=== PATIENT | female | born 1945 | race American Indian/Alaskan Native ===

== ENCOUNTER 2020-09-02 06:00 | Emergency (ER) | payer MEDICARE ==
[2020-09-02] MEDS ORDERED: oxyCODONE /ACETAMINOPHEN 5-325MG TAB PO ONE (10:38)
[2020-09-02] MEDS ORDERED: KETOROLAC 30 MG/1 ML INJ IM ONE (10:38)
--- NOTE | 2020-09-02 10:39 | Emergency Department Report ---
ED General Adult HPI - General Chief complaint: Pain General Stated complaint: RIGHT SIDE PAIN Time Seen by Provider: 09/02/20 10:28 Source: patient Mode of arrival: Wheelchair Limitations: No Limitations - History of Present Illness Initial comments: This is a 75-year-old female with history of spinal stenosis fibromyalgia and rheumatoid arthritis. She states that she missed her appointment at the pain clinic on Friday and is now in severe pain. Her pain is located mostly in her right knee and right hip. She denies any falls or injuries states this is her usual pain that is out of control at this time. She was last seen by Dr. summers who her primary care doctor that makes home visits approximately 2 weeks ago she was prescribed tramadol but it is not controlling her pain Patient denies chest pain, shortness of breath fever cough chills any urinary symptoms. She's currently taking Elliquis for hx of PE. -: Gradual Location: lower extremity (right knee and right hip) Severity scale (0 -10): 10 Quality: aching Improves with: none Worsens with: movement Associated Symptoms: denies: confusion, chest pain, cough, diaphoresis, fever/chills, headaches, loss of appetite, malaise, nausea/vomiting, shortness of breath, syncope, weakness Treatments Prior to Arrival: other (tramadol) - Related Data Allergies Allergy/AdvReac Type Severity Reaction Status Date / Time No Known Allergies Allergy Unverified 09/02/20 07:20 ED Review of Systems ROS: Stated complaint: RIGHT SIDE PAIN Other details as noted in HPI Constitutional: no symptoms reported. denies: chills, fever, malaise ENT: denies: ear pain Respiratory: denies: cough, shortness of breath, SOB with exertion, SOB at rest, wheezing Cardiovascular: denies: chest pain, palpitations, dyspnea on exertion, orthopnea, edema, syncope, paroxysmal nocturnal dyspnea Endocrine: denies: excessive sweating, flushing, intolerance to cold Gastrointestinal: denies: abdominal pain, nausea, vomiting, diarrhea, constipation, hematemesis Genitourinary: denies: urgency, dysuria, hematuria, dyspareunia Skin: denies: rash, lesions Neurological: denies: headache, weakness, numbness, paresthesias, confusion, vertigo, other Psychiatric: denies: anxiety, depression, auditory hallucinations, visual hallucinations, homicidal thoughts Hematological/Lymphatic: denies: easy bleeding, easy bruising ED Past Medical Hx - Past Medical History Previous Medical History?: Yes Hx Arthritis: Yes Additional medical history: Fibromyalgia ED Physical Exam - General Limitations: No Limitations General appearance: alert, anxious - Head Head exam: Present: atraumatic - Eye Eye exam: Present: normal appearance, PERRL, EOMI. Absent: conjunctival injection Pupils: Present: normal accommodation - ENT ENT exam: Present: normal exam, mucous membranes moist - Neck Neck exam: Present: normal inspection, full ROM - Respiratory Respiratory exam: Present: normal lung sounds bilaterally. Absent: respiratory distress, wheezes, rales, rhonchi, chest wall tenderness - Cardiovascular Cardiovascular Exam: Present: regular rate - GI/Abdominal GI/Abdominal exam: Present: soft, normal bowel sounds. Absent: distended, tenderness - Rectal Rectal exam: Present: deferred - Extremities Exam Extremities exam: Present: normal inspection, normal capillary refill, other (no warmth swelling or erythema notes of her joints. Skin intact). Absent: pedal edema, calf tenderness - Back Exam Back exam: Present: normal inspection - Neurological Exam Neurological exam: Present: alert, oriented X3 - Psychiatric Psychiatric exam: Present: anxious - Skin Skin exam: Present: warm, dry, intact ED Course Vital Signs 09/02/20 09/02/20 07:24 07:25 Temperature 98.5 F Pulse Rate 74 Respiratory 24 Rate Blood Pressure 171/92 O2 Sat by Pulse 100 Oximetry - Reevaluation(s) Reevaluation #1: 09/02/20 12:36 Patient reports decreasing pain. I discussed x-rays results with the patient. 09/02/20 12:37 ED Medical Decision Making - Radiology Data Radiology results: report reviewed RIGHT KNEE 3 VIEWS INDICATION / CLINICAL INFORMATION: RIGHT KNEE PAIN. COMPARISON: None available. FINDINGS: Suboptimal exam as the patient was not able to extend the knee fully. There appears to be moderate degenerative change in the patellofemoral joint. Vascular calcification is present HIP PAIN TECHNICAL DATA: AP and lateral views of the hip were obtained. FINDINGS: The hips are well mineralized. Narrowing of the articular space is present b ilaterally right greater than left. Sclerosis of the articular surface noted. Subchondral cyst formation is present on the right. No evidence of a fracture. There is no radiographic evidence of hip effusion. IMPRESSION: Degenerative changes both hips right more severe effected than left - Medical Decision Making 75-year-old patient with a history of spinal stenosis her pain was relieved with 30 mg of Toradol IM and Percocet 2 tabs. X-rays of her hip and right knee shows no acute findings. I discussed with the patient plan is for her to follow-up with her PCP on Friday continue with tramadol for pain. Follow-up with pain management clinic as previously scheduled. Patient agrees to this plan Critical Care Time: No Critical care attestation.: If time is entered above; I have spent that time in minutes in the direct care of this critically ill patient, excluding procedure time. ED Disposition Clinical Impression: Chronic pain disorder Disposition: - TO HOME OR SELFCARE Is pt being admited?: No Does the pt Need Aspirin: No Condition: Stable Instructions: Chronic Pain (ED) Additional Instructions: Follow-up with your pain management doctor. Continue taking tramadol at home as prescribed you can also include [id number] Tylenol 650 every 6-8 hours as needed for pain. Return to the emergency room for any worsening symptoms such as chest pain or shortness shortness of breath Referrals: ADITI MAN MD [Primary Care Provider] - 3-5 Days Time of Disposition: 12:42
--- NOTE | 2020-09-02 11:58 | XRay Report ---
CLINICAL DATA: HIP PAIN TECHNICAL DATA: AP and lateral views of the hip were obtained. FINDINGS: The hips are well mineralized. Narrowing of the articular space is present bilaterally right greater than left. Sclerosis of the articular surface noted. Subchondral cyst formation is present on the rig ht. No evidence of a fracture. There is no radiographic evidence of hip effusion. IMPRESSION: Degenerative changes both hips right more severe effected than left Signer Name: Mike Hart MD Signed: 09/02/2020 11:54 AM Workstation Name: [id number]
--- NOTE | 2020-09-02 12:01 | XRay Report ---
RIGHT KNEE 3 VIEWS INDICATION / CLINICAL INFORMATION: RIGHT KNEE PAIN. COMPARISON: None available. FINDINGS: Suboptimal exam as the patient was not able to extend the knee fully. There appears to be moderate de generative change in the patellofemoral joint. Vascular calcification is present. Signer Name: Avel Kent MD FACBetzaida Signed: 09/02/2020 11:57 AM Workstation Name: [id number]
[2020-09-02 13:13] VITALS: BP 185/87
== END 2020-09-02 16:19 | disposition home or self-care (01) ==
LOC: ED 06:00 → EDBD 06:00 → ED 16:19
DX: M25.562 Pain in left knee (principal); M25.551 Pain in right hip; G89.29 Other chronic pain; M19.90 Unspecified osteoarthritis, unspecified site
CPT/HCPCS: 73521; 73562; 96372; 99283; J1885

== ENCOUNTER 2021-08-08 15:30 | Emergency (ER) | payer MEDICARE ==
[2021-08-08] MEDS ORDERED: HYDROcodone/ACETAMINOPHEN 5-325 MG TAB PO ONE (15:49)
--- NOTE | 2021-08-08 17:43 | XRay Report ---
. XR hip 2-3V RT INDICATION / CLINICAL INFORMATION: severe right hip pain. COMPARISON: Hip x-rays on 09/02/2020 FINDINGS: Exam is limited due to poor penetration. The right femoral head appears to be superiorly and laterall y subluxed from the right acetabulum. There was severe arthritis in the right hip on the prior study so this finding could potentially be chronic due to remodeling of the femoral head and acetabular rim due to the severe degenerative change. There is severe DJD in the left hip joint. Signer Name: Deon Martin MD Signed: 08/08/2021 5:39 PM Workstation Name: [id number]
--- NOTE | 2021-08-08 19:00 | Emergency Department Report ---
ED Lower Extremity HPI - General Chief Complaint: Pain General Stated Complaint: BODY PAIN Time Seen by Provider: 08/08/21 15:48 Source: patient, EMS Mode of arrival: Stretcher Limitations: Physical Limitation - History of Present Illness Initial Comments: Chief complaint: My hip hurts HPI: This is a 76-year-old female with history of fibromyalgia fibromyalgia pulmonary embolism on Eliquis who presents with right hip pain for several months. Patient is bedbound. Patient has been bedbound for several years. She suffers from foot drop. No recent trauma. Pain in the right hip for several months. Her daughter is caregiver. Her daughter transfers her from bed to chair. She uses a motorized wheelchair. MD Complaint: other (Right hip pain for several months) -: Gradual, month(s) (Several months her hip pain) Injury: Hip: Right Severity: severe Severity scale (0 -10): 8 Improves With: other (Second physicians) Worsens With: movement Associated Symptoms: unable to bear weight - Related Data Previous Rx's Medication Instructions Recorded Last Taken Type HYDROcodone/APAP 5-325 [[place] 1 each PO Q6HR PRN #20 tablet 08/08/21 Unknown Rx 5/325] Allergies Allergy/AdvReac Type Severity Reaction Status Date / Time No Known Allergies Allergy Unverified 09/02/20 07:20 ED Review of Systems ROS: Stated complaint: BODY PAIN Other details as noted in HPI Comment: All other systems reviewed and negative Constitutional: denies: chills, fever, malaise ED Past Medical Hx - Past Medical History Previous Medical History?: Yes Hx Arthritis: Yes Additional medical history: Pulmonary embolism fibromyalgia - Social History Smoking Status: Never Smoker Substance Use Type: None - Medications Home Medications: Home Medications Medication Instructions Recorded Confirmed Last Taken Type HYDROcodone/APAP 5-325 [[place] 1 each PO Q6HR PRN #20 tablet 08/08/21 Unknown Rx 5/325] ED Physical Exam - General Limitations: Physical Limitation General appearance: alert, in no apparent distress - Head Head exam: Present: atraumatic, normocephalic - Eye Eye exam: Present: normal appearance - ENT ENT exam: Present: mucous membranes moist - Neck Neck exam: Present: normal inspection, full ROM - Respiratory Respiratory exam: Present: normal lung sounds bilaterally. Absent: respiratory distress, wheezes, rales, rhonchi - Cardiovascular Cardiovascular Exam: Present: regular rate, normal rhythm, normal heart sounds. Absent: systolic murmur, diastolic murmur, rubs, gallop - GI/Abdominal GI/Abdominal exam: Present: soft, normal bowel sounds. Absent: distended, tenderness, guarding, rebound - Extremities Exam Extremities exam: Present: other (Right hip externally rotated abducted) - Neurological Exam Neurological exam: Present: alert, oriented X3 - Psychiatric Psychiatric exam: Present: normal affect, normal mood - Skin Skin exam: Present: warm, dry, intact, normal color. 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 XR hip 2-3V RT INDICATION / CLINICAL INFORMATION: severe right hip pain. COMPARISON: Hip x-rays on 09/02/2020 FINDINGS: Exam is limited due to poor penetration. The right femoral head appears to be superiorly and laterally subluxed from the right acetabulum. There was severe arthritis in the right hip on the prior study so this finding could potentially be chronic due to remodeling of the femoral head and acetabular rim due to the severe degenerative change. There is severe DJD in the left hip joint. Signer Name: Deon Martin MD Signed: 08/08/2021 4:39 PM Workstation Name: [id number] - Medical Decision Making Severe right hip pain due to degenerative joint disease. Neurovascular intact, patient prescribed [place]. Referred to orthopedic surgeon. Critical care attestation.: If time is entered above; I have spent that time in minutes in the direct care of this critically ill patient, excluding procedure time. ED Disposition Clinical Impression: Degenerative joint disease of right hip Disposition: HOME / SELF CARE / HOMELESS Is pt being admited?: No Does the pt Need Aspirin: No Condition: Stable Instructions: Arthritis, [id number] Prescriptions: HYDROcodone/APAP 5-325 [[place] 5/325] 1 each PO Q6HR PRN #20 tablet PRN Reason: Pain Referrals: KAITLYN MCCONNELL MD [Staff Physician] - 3-5 Days
[2021-08-08 21:30] VITALS: BP 108/62
== END 2021-08-08 21:50 | disposition home or self-care (01) ==
LOC: ED 15:30
DX: M16.11 Unilateral primary osteoarthritis, right hip (principal); Z87.39 Personal history of other diseases of the musculoskeletal system and connective tissue
CPT/HCPCS: 99283